=== PATIENT | male | born 1990 | race Asian ===

== ENCOUNTER 2024-02-22 22:26 | Emergency (ER) | payer BC ==
[~2024-02-22] VITALS: Ht 167.6 cm; Wt 54.5 kg
[2024-02-22 22:41] VITALS: BP 146/86; TEMP 98.9
[2024-02-22] MEDS ORDERED: AMOXICILLIN875 MG PO (23:14)
[2024-02-22 23:44] VITALS: PULSE 84
== END 2024-02-22 23:44 | disposition home or self-care (01) ==
LOC: COL.ER 22:26
DX: K04.7 Periapical abscess without sinus (principal); K05.10 Chronic gingivitis, plaque induced; F17.210 Nicotine dependence, cigarettes, uncomplicated; F17.290 Nicotine dependence, other tobacco product, uncomplicated